=== PATIENT | male | born 1965 | race Caucasian/White ===

== ENCOUNTER 2020-01-23 07:40 | Inpatient (IN) ==
[2020-01-23] MEDS ORDERED: NALOXONE 0.4 MG/ML VIAL ONE (08:57)
[2020-01-23] MEDS ORDERED: NALOXONE 0.4 MG/ML VIAL IV STA ×3 (08:57→10:06)
[2020-01-23 09:14] LABS: Albumin 3.8 G/DL (3.4-5.0); Bilirubin,Total 1.5 MG/DL (0.2-1.0); Calcium 8.8 MG/DL (8.5-10.1); PT Patient Result 10.8 SECS (9.8-11.9); Total Protein 6.9 G/DL (6.4-8.3)
[2020-01-23 09:26] LABS: Basophils % 0.3 % (0.0-0.8); Eosinophils % 0.3 % (0.00-10.9); Hematocrit 42.3 VOL% (42.0-52.0); Hemoglobin 12.6 GM/DL (14.0-18.0); Immature Granulocytes % 0.4 %; Immature Granulocytes Absolute 0.03 #; Lymphocytes # 0.4 10*3/uL (1.4-4.0); Lymphocytes % 5.9 % (21.2-54.2); Mean Corpuscular HGB Conc 29.8 GM/DL (32-36); Mean Corpuscular Volume 101.7 FL (87-102); Mean Platelet Volume 10.5 FL (9.6-12.0); Monocytes % 8.3 % (1.7-12.7); Neutrophils % 84.8 % (38.7-73.9); Platelet Count 210 T/CUMM (130-400); Red Blood Count 4.16 MC/CUMM (3.8-5.5); Red Cell Distribution Width 14.5 % (9.3-17.3); White Blood Count 7.5 T/CUMM (4-12)
[2020-01-23 10:26] LABS: Apearance,Urine CLEAR (Clear); Bacteria,Urine Occasional /HPF (Few); Barbiturates Screen,Urine Negative (Negative); Benzodiazepines Screen,Urine Negative (Negative); Bilirubin,Urine Negative (Negative); Blood, Urine Large mg/dL (Negative); Cannabinoid Screen,Urine Negative (Negative); Glucose,Urine (UA) Negative (Negative); Hyaline Casts,Urine 1 /LPF (0-3); Ketones,Urine Negative (Negative); Nitrite,Urine Negative (Negative); Opiate Screen,Urine Positive (Negative); Phencyclidine Screen,Urine Negative (Negative); Protein,Urine 30 MG/DL; RBC,Urine 66 /HPF (0-4); Squamous Epithelial Cell,Urine Occasional /HPF (0-10); Urine Color Amber (Yellow); Urine Urobilinogen < 2.0 EU/DL (0.2-1.0); WBC,Urine 4 /HPF (0-6)
[2020-01-23] MEDS ORDERED: ALBUTEROL 2.5 MG/3 ML NEB RESP TX PRN (11:44)
[2020-01-23] MEDS ORDERED: ONDANSETRON 4 MG/2 ML VIAL IV PRN (11:44)
[2020-01-23] MEDS ORDERED: LACTULOSE 20 GM/30 ML UDCUP PO SCH (12:00)
[2020-01-23] MEDS: PANTOPRAZOLE 40 MG VIAL IV SCH (12:27)
[2020-01-23] MEDS: LACTATED RINGERS 1,000 ML IV SCH (12:27)
[2020-01-23] MEDS ORDERED: NALOXONE 0.4 MG/ML VIAL IV PRN (14:11)
[2020-01-23] MEDS: DICLOFENAC 1% GEL 100 GM TUBE TOP SCH ×3 (14:57→20:56)
[2020-01-23] MEDS ORDERED: PNEUMOCOCCAL VACCINE (13 VALENT) 0.5 ML SYRINGE IM ONE (17:05)
[2020-01-23] MEDS: LACTULOSE 20 GM/30 ML UDCUP PO SCH (18:31)
[2020-01-23] MEDS: ENOXAPARIN 30 MG/0.3 ML SYRINGE SUBCUT SCH (20:56)
[2020-01-23] MEDS: SUCRALFATE 1 GM/10 ML UDCUP PO SCH (20:57)
[2020-01-23] MEDS: DOCUSATE/SENNA 50-8.6 MG TABLET PO SCH (20:57)
[2020-01-24] MEDS: LACTATED RINGERS 1,000 ML IV SCH ×3 (00:33→17:57)
[2020-01-24] MEDS: LACTULOSE 20 GM/30 ML UDCUP PO SCH ×3 (00:34→18:04)
[2020-01-24 00:39] LABS: Albumin 3.2 G/DL (3.4-5.0); Bilirubin,Total 1.2 MG/DL (0.2-1.0); Calcium 8.9 MG/DL (8.5-10.1); Osmolality,Calculated 303.8 MOS/KG (273-304); Total Protein 6.6 G/DL (6.4-8.3)
[2020-01-24 04:54] LABS: Basophils % 0.3 % (0.0-0.8); Eosinophils % 0.3 % (0.00-10.9); Hematocrit 35.5 VOL% (42.0-52.0); Hemoglobin 10.9 GM/DL (14.0-18.0); Immature Granulocytes % 0.2 %; Immature Granulocytes Absolute 0.01 #; Lymphocytes # 0.8 10*3/uL (1.4-4.0); Lymphocytes % 13.5 % (21.2-54.2); Mean Corpuscular HGB Conc 30.7 GM/DL (32-36); Mean Corpuscular Volume 102.9 FL (87-102); Mean Platelet Volume 10.5 FL (9.6-12.0); Monocytes % 9.3 % (1.7-12.7); Neutrophils % 76.4 % (38.7-73.9); Platelet Count 177 T/CUMM (130-400); Red Blood Count 3.45 MC/CUMM (3.8-5.5); Red Cell Distribution Width 14.1 % (9.3-17.3); White Blood Count 5.9 T/CUMM (4-12)
[2020-01-24] MEDS: SUCRALFATE 1 GM/10 ML UDCUP PO SCH ×2 (09:26→21:54)
[2020-01-24] MEDS: DICLOFENAC 1% GEL 100 GM TUBE TOP SCH ×4 (09:26→21:57)
[2020-01-24] MEDS: PANTOPRAZOLE 40 MG VIAL IV SCH (13:34)
[2020-01-24] MEDS: ENOXAPARIN 30 MG/0.3 ML SYRINGE SUBCUT SCH (21:54)
[2020-01-24] MEDS: DOCUSATE/SENNA 50-8.6 MG TABLET PO SCH (21:54)
[2020-01-25] MEDS: LACTULOSE 20 GM/30 ML UDCUP PO SCH ×2 (02:10→08:43)
[2020-01-25] MEDS: LACTATED RINGERS 1,000 ML IV SCH ×2 (02:11→14:33)
[2020-01-25] MEDS: SUCRALFATE 1 GM/10 ML UDCUP PO SCH (08:43)
[2020-01-25] MEDS: DICLOFENAC 1% GEL 100 GM TUBE TOP SCH ×2 (08:47→12:26)
[2020-01-25] MEDS ORDERED: NIFEdipine 10 MG CAPSULE PO PRN (09:05)
[2020-01-25] MEDS ORDERED: MORPHINE 10 MG PO PRN (09:05)
[2020-01-25 09:28] LABS: Basophils % 0.5 % (0.0-0.8); Eosinophils # 0.1 10*3/uL (0.0-0.87); Eosinophils % 1.1 % (0.00-10.9); Hematocrit 35.2 VOL% (42.0-52.0); Hemoglobin 11.6 GM/DL (14.0-18.0); Immature Granulocytes % 0.3 %; Immature Granulocytes Absolute 0.02 #; Lymphocytes # 0.9 10*3/uL (1.4-4.0); Lymphocytes % 13.4 % (21.2-54.2); Mean Corpuscular Volume 95.7 FL (87-102); Mean Platelet Volume 9.8 FL (9.6-12.0); Monocytes % 11.4 % (1.7-12.7); Neutrophils % 73.3 % (38.7-73.9); Platelet Count 216 T/CUMM (130-400); Red Blood Count 3.68 MC/CUMM (3.8-5.5); White Blood Count 6.6 T/CUMM (4-12)
[2020-01-25 09:59] LABS: Calcium 10.4 MG/DL (8.5-10.1)
[2020-01-25] MEDS: PANTOPRAZOLE 40 MG VIAL IV SCH (12:18)
[2020-01-25 12:48] VITALS: BP 139/86
== END 2020-01-25 15:35 | disposition home or self-care (01) | DRG 917 ==
LOC: N.ED 07:40 → N.EDINP 11:44 → SUATTDRO 11:44 → N.ICU 13:58
PROVIDERS: ADMIT Phlebology; ATTEND Internal Medicine